=== PATIENT | male | born 1935 | race Caucasian/White ===

== ENCOUNTER 2017-03-22 23:56 | Emergency (ER) | payer SELFPAY ==
[2017-03-23 00:25] VITALS: BMI 22.6
--- NOTE | 2017-03-23 00:27 | ED PDOC ---
Arrival/HPI - General Time Seen by Provider: 03/23/17 00:16 Historian: Patient - History of Present Illness Narrative History of Present Illness (Text): 03/23/17 00:26 Larry Hayes is a 81 year old male, whose past medical history includes hypertension, who presents to the Emergency department accompanied by family complaining of high blood pressure. Relative states patient began complaining dizziness earlier this evening and noted his blood pressure was elevated. Relative gave the patient Norvasc and Hydrochlorothiazide originally prescribed to the patient's son prior to arrival. Son notes patient used to be on hypertensive medication in [place] but was instructed to stop taking it by his former PMD. Patient denies any fever, chest pain, shortness of breath, nausea, vomiting, diarrhea, urinary symptoms, back pain, neck pain, headache, or any other complaints. Time/Duration: Other (tonight) Symptom Onset: Gradual Symptom Course: Unchanged Activities at Onset: Light Context: Home Past Medical History - Provider Review Nursing Documentation Reviewed: Yes Family/Social History - Physician Review Nursing Documentation Reviewed: Yes Family/Social History: Unknown Family HX Allergies/Home Meds Allergies/Adverse Reactions: Allergies No Known Allergies Allergy (Verified 03/23/17 00:25) Home Medications: Home Meds Medication Instructions Recorded Confirmed Famalzyl 8 mg PO DAILY 03/23/17 03/23/17 Review of Systems - Physician Review All systems were reviewed & negative as marked: Yes - Review of Systems Constitutional: Normal. absent: Fevers Eyes: Normal ENT: Normal Respiratory: Normal. absent: SOB, Cough Cardiovascular: Other (+high blood pressure). absent: Chest Pain Gastrointestinal: Normal. absent: Abdominal Pain, Diarrhea, Nausea, Vomiting Genitourinary Male: Normal. absent: Dysuria, Frequency, Hematuria, Urinary Output Changes Musculoskeletal: Normal. absent: Back Pain, Neck Pain Skin: Normal. absent: Rash Neurological: Dizziness. absent: Headache Endocrine: Normal Hemo/Lymphatic: Normal Psychiatric: Normal Physical Exam Vital Signs Reviewed: Yes Vital Signs Temp Pulse Resp BP Pulse Ox 03/23/17 02:58 97.8 F 80 150/82 03/23/17 01:10 177/93 H 03/23/17 00:25 97.7 F 74 18 177/93 H 96 03/22/17 23:57 97.8 F 80 19 151/89 H 100 Temperature: Afebrile Blood Pressure: Hypertensive Pulse: Regular Respiratory Rate: Normal Appearance: Positive for: Well-Appearing, Non-Toxic, Comfortable Pain Distress: None Mental Status: Positive for: Alert and Oriented X 3 - Systems Exam Head: Present: Atraumatic, Normocephalic Pupils: Present: PERRL Extroacular Muscles: Present: EOMI Conjunctiva: Present: Normal Ears: Present: NORMAL TM Mouth: Present: Moist Mucous Membranes Pharnyx: Present: Normal Neck: Present: Normal Range of Motion. No: Meningeal Signs, MIDLINE TENDERNESS , Paraspinal Tenderness Respiratory/Chest: Present: Clear to Auscultation, Good Air Exchange. No: Respiratory Distress, Accessory Muscle Use Cardiovascular: Present: Regular Rate and Rhythm, Normal S1, S2. No: Murmurs Abdomen: Present: Normal Bowel Sounds. No: Tenderness, Distention, Peritoneal Signs Back: Present: Normal Inspection Upper Extremity: Present: Normal Inspection. No: Cyanosis, Edema Lower Extremity: Present: Normal Inspection. No: Edema Neurological: Present: GCS=15, CN II-XII Intact, Speech Normal, Motor Func Grossly Intact, Normal Sensory Function Skin: Present: Warm, Dry, Normal Color. No: Rashes Psychiatric: Present: Alert, Oriented x 3, Normal Insight, Normal Concentration Medical Decision Making ED Course and Treatment: 03/23/17 00:26 Impression: 81 year old male complaining of dizziness and high blood pressure tonight. Differential Diagnosis included but are not limited to: hypertension Plan: -- CT Head w/o contrast -- EKG -- Labs, cardiac enzymes -- Catapres -- Reassess and disposition Progress Notes: Reviewed EKG, NSR at [address]-segment elevations or depressions, no T-wave inversions, normal intervals. 03/23/17 01:55 Reviewed radiology, CT Head shows: Brain: Atrophy. Bilateral white matter hypoattenuation most consistent with chronic ischemic small vessel changes. No hemorrhage. No edema. Ventricles: No hydrocephalus. Bones: Skull is intact. Sinuses: No acute sinusitis. Mastoid air cells: No mastoid effusion. IMPRESSION: No CT evidence of acute intracranial abnormality. 03/23/17 02:47 On reevaluation the patient feels better and is in no acute distress. I have discussed the results and plan with the patient, who expresses understanding. Patient given the opportunity to ask question, all questions were answered and there is agreement with the plan to discharge the patient home. Patient is stable for discharge. Patient was instructed to follow up with physician/clinic in 1-2 days or return if symptoms persist/worsen or new concerning symptoms arise. - Lab Interpretations Lab Results: 03/23/17 00:50 03/23/17 00:50 Lab Results 03/23/17 00:50: WBC 4.9, RBC 4.65, Hgb 14.1, Hct 42.6, MCV 91.6, MCH 30.3, MCHC 33.1, RDW 13.5, Plt Count 231, MPV 9.2 03/23/17 00:50: Sodium 136, Potassium 4.1, Chloride 101, Carbon Dioxide 30, Anion Gap 10, BUN 14, Creatinine 1.0, Est GFR ( Amer) > 60, Est GFR (Non- Af Amer) > 60, Random Glucose 116 H, Calcium 8.9, Total Bilirubin 0.6, AST 24, ALT 35, Alkaline Phosphatase 85, Lactate Dehydrogenase 408, Total Creatine Kinase 196, Troponin I 0.01, Total Protein 7.4, Albumin 4.0, Globulin 3.3, Albumin/Globulin Ratio 1.2 03/23/17 00:50: PT 12.5, INR 1.14 H, APTT 27.7 I have reviewed the lab results: Yes - RAD Interpretation Radiology Orders: 03/23/17 00:36 HEAD W/O CONTRAST [CT] Stat Six Pack Packer: Radiologist - EKG Interpretation Interpreted by ED Physician: Yes Type: 12 lead EKG - Medication Orders Current Medication Orders: Discontinued Medications Clonidine HCl (Catapres) 0.1 mg PO STAT STA Stop: 03/23/17 01:03 Last Admin: 03/23/17 01:10 Dose: 0.1 mg MAR Pulse and Blood Pressure Document 03/23/17 01:10 AB (Rec: 03/23/17 01:11 AB [id number]) Blood Pressure Blood Pressure (100/60-150/90) 177/93 Ondansetron HCl (Zofran Inj) 4 mg IVP ONCE ONE Stop: 03/23/17 01:17 Last Admin: 03/23/17 01:25 Dose: 4 mg IVP Administration Document 11/20/17 01:25 AB (Rec: 03/23/17 01:26 AB [id number]) Charges for Administration # of IVP Administrations 1 - Scribe Statement The provider has reviewed the documentation as recorded by the Shalini Newton Provider Scribe Attestation: All medical record entries made by the Scribe were at my direction and personally dictated by me. I have reviewed the chart and agree that the record accurately reflects my personal performance of the history, physical exam, medical decision making, and the department course for this patient. I have also personally directed, reviewed, and agree with the discharge instructions and disposition. Disposition/Present on Arrival - Present on Arrival Any Indicators Present on Arrival: No - Disposition Have Diagnosis and Disposition been Completed?: Yes Diagnosis: Hypertension Disposition: HOME/ ROUTINE Disposition Time: 02:47 Patient Plan: Discharge Condition: GOOD Discharge Instructions (ExitCare): Hypertension (ED) Additional Instructions: Take meds as prescribed/follow up with your doctor this week Prescriptions: amLODIPine [Norvasc] 5 mg PO DAILY #30 tab Ondansetron [Zofran Odt] 4 mg PO Q6 PRN #12 odt PRN Reason: Nausea/Vomiting Referrals: Mich Burk MD [Staff Provider] - Follow up with primary Forms: [employer] (Persian)
[2017-03-23 00:30] VITALS: RESP 18; O2SAT 96
[2017-03-23 01:34] LABS: HEMATOCRIT 42.6 % (42.0-52.0); MEAN CELL VOLUME 91.6 fl (80.0-105.0); MEAN CORPUSCULAR HEMOGLOBIN 30.3 pg (25.0-35.0); MEAN CORPUSCULAR HGB CONC 33.1 g/dl (31.0-37.0); MEAN PLATELET VOLUME 9.2 fl (7.0-11.0); RED CELL DISTRIBUTION WIDTH 13.5 % (11.5-14.5); WHITE BLOOD COUNT 4.9 10^3/ul (4.5-11.0)
[2017-03-23 01:38] LABS: ALB/GLOB RATIO 1.2 (1.1-1.8); ALKALINE PHOSPHATASE 85 U/L (38-126); ALT/SGPT 35 U/L (7-56); AST/SGOT 24 U/L (17-59); BILIRUBIN,TOTAL 0.6 mg/dL (0.2-1.3); BLOOD UREA NITROGEN 14 mg/dL (7-21); CALCIUM 8.9 mg/dL (8.4-10.5); CARBON DIOXIDE 30 mmol/L (21-33); CHLORIDE 101 mmol/L (98-107); GFR AFRICAN-AMERICAN > 60; GLUCOSE,RANDOM 116 mg/dL (70-110); POTASSIUM 4.1 mmol/L (3.6-5.0); SODIUM 136 mmol/L (132-148); TOTAL PROTEIN 7.4 g/dL (5.8-8.3)
[2017-03-23 01:43] LABS: INR 1.14 (0.93-1.08); PARTIAL THROMBOPLASTIN TIME 27.7 Seconds (25.1-36.5)
[2017-03-23 01:48] LABS: TROPONIN I 0.01 ng/mL
--- NOTE | 2017-03-23 01:50 | CT ---
EXAM: CT Head Without Intravenous Contrast CLINICAL HISTORY: 81 years old, male; Signs and symptoms; Dizziness; Additional info: Dizzy TECHNIQUE: Axial computed tomography images of the head/brain without intravenous contrast. All CT scans at this facility use one or more dose reduction techniques, viz.: automated exposure control; ma/kV adjustment per patient size (including targeted exams where dose is matched to indication; i.e. head); or iterative reconstruction technique. COMPARISON: No relevant prior studies available. FINDINGS: Brain: Atrophy. Bilateral white matter hypoattenuation most consistent with chronic ischemic small vessel changes. No hemorrhage. No edema. Ventricles: No hydrocephalus. Bones: Skull is intact. Sinuses: No acute sinusitis. Mastoid air cells: No mastoid effusion. IMPRESSION: No CT evidence of acute intracranial abnormality.
[2017-03-23 02:59] VITALS: BP 150/82; PULSE 80; TEMP 97.8
--- NOTE | 2017-03-24 11:29 | CARD ---
APPROVED REPORT EKG Measurement Heart [id number] <Conclusion> Normal sinus rhythm Normal ECG
== END 2017-03-23 02:58 | disposition home or self-care (01) ==
LOC: ED 23:56
DX: I10 Essential (primary) hypertension (principal)
CPT/HCPCS: 70450; 80053; 82550; 83615; 84484; 85027; 85610; 85730; 93005; 96374; 99285; J2405